=== PATIENT | female | born 2005 | race Two or more races ===

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

== ENCOUNTER 2025-02-17 08:44 | Inpatient (IN) | payer MEDICAID, SELFPAY ==
[2025-02-17] VITALS (168 sets, daily range): BP systolic 101–144; BP diastolic 55–97; PULSE 50–96; RESP 16–97; TEMP 36.7–37.2; O2SAT 90–100; BMI 27.3
[2025-02-17 09:47] LABS: Collection Type, Urine Clean Catch
[2025-02-17 10:10] LABS: Bilirubin,Urine Negative (Negative); Blood,Urine Negative (Negative); Clarity,Urine Clear (Clear/Hazy); Color,Urine Lt-Yellow (Lt Yel-Yel); Glucose, Urine Negative (Negative); Hyphae Yeast Present; Ketones,Urine Negative (Negative); Leukocyte Esterase,Urine Positive (Negative); Nitrite,Urine Negative (Negative); PH,Urine 7.0 (5.0-7.0); Protein,Urine Trace (Neg - Trace); RBC,Urine 2 /hpf (0-3); Specific Gravity,Urine 1.015 (1.001-1.035); Squamous Epithelial Cell,Urine 4 /hpf (0-5); Urobilinogen,Urine Negative mg/dL (0.0-1.0); WBC,Urine 10 /hpf (0-5)
--- NOTE | 2025-02-17 10:47 | PD.LDHP ---
Documentation for date of: 02/17/25 OB Labor/Induct. HPI History of Present Illness : 2 Para: 1 Term pregnancies: 1 pregnancies: 0 Living children: 1 History of Abortions: Spontaneous and Elective: 0 History of Vaginal deliveries: 1 History of sections: No History of : No Date of last menstrual period: 05/22/24 ZANE: 02/26/25 Gestational Age (weeks): 38 Gestational Age (days): 5 Gestational age based on last menstrual period: 38 History of present illness: H and P dictated on STAT line #9 in [facility]. [id number]. History of Present Adequate Care: Yes Past Medical History Surgical History SURGICAL: Negative Section Meds Home Medications and Allergies Home Medications ?Medication ?Instructions ?Recorded ?Confirmed ?Type ferrous sulfate 325 mg (65 mg 325 mg PO DAILY 05/08/23 02/17/25 History iron) tablet vits no.124-ferrous fum 1 tab PO QDAY 06/04/23 02/17/25 History 27 mg iron-folic acid 800 mcg tablet ( Vitamin) Allergies Allergy/AdvReac Type Severity Reaction Status Date / Time No Known Allergies Allergy Verified 02/17/25 10:34 OB Exam Physical Exam Vital signs: Temp Pulse Resp BP Pulse Ox 98.1 F 90 18 119/75 98 02/17/25 08:59 02/17/25 08:59 02/17/25 08:59 02/17/25 08:59 02/17/25 09:34 OB Results Labs Labs: Urine 02/17/25 Range/Units 09:00 Urine Color Lt-Yellow (Lt Yel-Yel) Urine Clarity Clear (Clear/Hazy) Urine pH 7.0 (5.0-7.0) Ur Specific [place] 1.015 (1.001-1.035) Urine Protein Trace (Neg - Trace) Urine Glucose (UA) Negative (Negative)
--- NOTE | 2025-02-17 10:55 | ESHP_ITS ---
RE: KORI CRYSTAL : 2005 DATE OF ADMISSION: 02/17/2025 HISTORY OF PRESENT ILLNESS: This is a 19-year-old 2, para 1, with due date of 02/26 with intrauterine at 38 weeks and 5 days, who presents to labor and delivery complaining of contractions and some vaginal bleeding. There is no bleeding noted on her presentation to labor and delivery. However, she was dilated 3 cm and was having some irregular contractions. She had a category 1 tracing with normal vital signs, so she has decided to ambulate to see if she progresses in labor. Her care was complicated by pyelonephritis where she was hospitalized on 10/04 through 10/06 and subsequently was placed on Macrobid daily to prevent any reoccurring pyelonephritis or bladder infection. She also received RhoGAM at 28 weeks for Rh negative. She has also had iron deficiency anemia and she has been taking ferrous sulfate in addition to having iron infusions in 12/2024. Group B strep urinary tract infection 01/08/2025. ALLERGIES: NO KNOWN DRUG ALLERGIES. MEDICATIONS: 1. multivitamin 1 p.o. daily. 2. Ferrous sulfate 325 mg 1 p.o. b.i.d. 3. Macrobid 100 mg 1 p.o. daily. PAST MEDICAL HISTORY: Iron deficiency anemia, pyelonephritis, left breast cyst, Rh negative, group B strep urinary tract infection 01/08/2025. SOCIAL HISTORY: She uses marijuana. She denies any alcohol or other drug use. FAMILY HISTORY: Denies. OBSTETRICAL HISTORY: In 05/2023, 40-week normal vaginal delivery, 5 pound 6 ounce male, no complications. PAST SURGICAL HISTORY: Denies. REVIEW OF SYSTEMS: She denies any chest pain, palpitations, cough, fever, shortness of breath, or lower extremity pain. PHYSICAL EXAMINATION: VITAL SIGNS: Blood pressure 135/82, heart rate 88, respirations 18, temperature 98.6, weight 166 pounds. HEENT: Oropharynx and sclerae clear. LUNGS: Clear to auscultation bilaterally. HEART: Regular rate and rhythm. ABDOMEN: Gravid consistent with estimated weight 7 pounds. EXTREMITIES: Nontender. SKIN: No gross rashes or lesions. NEUROLOGIC: No focal deficit. UA suggests possible UTI. ASSESSMENT: Intrauterine at 38 weeks and 5 days. Early labor. UTI. PLAN: Admit for anticipated normal vaginal delivery and GBS prophylactic and UTI antibiotic. Informed Consent Obtained: Patient made aware of the risks, complications, alternatives and benefits of OVD and C/S delivery and she agrees. DT: 10:34:29 TT: 10:54:00 Ref: [id number] - TID: [id number] MTDD
[2025-02-17] MEDS: SODIUM CHLORIDE 0.9% 1000 ML 1,000 ML 125 ML IV (11:21)
[2025-02-17] MEDS: cefTRIAXone/D5w 1gm IV premix 1 GM/50 ML BAG IV (11:22)
[2025-02-17 11:52] LABS: Basophils # (Auto) 0.0 Thou/mm3 (0.0-0.2); Basophils % (Auto) 0 % (0-2.5); Eosinophils # (Auto) 0.0 Thou/mm3 (0.0-0.5); Eosinophils % (Auto) 0 % (0-10); Hematocrit 31.2 % (36.0-46.0); Hemoglobin 10.5 g/dL (12.0-16.0); Immature Granulocytes Auto 0.04 Thou/mm3 (0.00-0.00); Lymphocytes # (Auto) 1.2 Thou/mm3 (1.0-5.0); Lymphocytes % (Auto) 13 % (10-50); Mean Corpuscular HGB Conc 33.7 g/dl (31.0-37.0); Mean Corpuscular Hemoglobin 28.6 pg (25.0-35.0); Mean Corpuscular Volume 85 fL (80-100); Monocytes # (Auto) 0.9 Thou/mm3 (0.0-0.8); Monocytes % (Auto) 9 % (0-12); Neutrophils # (Auto) 6.9 Thou/mm3 (1.8-7.7); Neutrophils % (Auto) 77 % (37-80); Nucleated Red Blood Cell # 0.00 Thou/mm3 (0.00-0.00); Nucleated Red Blood Cell % 0 /100 WBC (0); Platelet Count 210 Thou/mm3 (140-440); RDW Standard Deviation 47.4 fL (36.4-46.3); Red Blood Count 3.67 Miln/mm3 (4.00-5.20); White Blood Count 9.0 Thou/mm3 (4.5-11.0)
[2025-02-17 12:37] LABS: Syphilis Nonreactive (Nonreactive)
[2025-02-17] MEDS: RINGERS LACTATED 1000 ML 1,000 ML 100 ML IV ×2 (13:05→14:11)
[2025-02-17] MEDS: Ampicillin Inj 1,000 MG in SODIUM CHLORIDE 0.9% (Popper) 50 ML 50 MG IV ×2 (15:05→19:02)
[2025-02-17 15:08] LABS: Amphetamine/Metham Scrn,Ur OB Negative (Negative); Benzoylecgonine Screen, Ur OB Negative (Negative); Opiate Screen,Urine OB Negative (Negative); THC Screen,Urine OB Negative (Negative)
[2025-02-17] MEDS: MINERAL OIL 30 ML UDC TOP (19:51)
[2025-02-17] MEDS: OXYTOCIN in NS 20 units 20 UNIT/1,000 ML BAG 125 UNIT IV (19:59)
--- NOTE | 2025-02-17 20:17 | PD.LDDS ---
DS: Providers Provider Date of admission: 02/17/25 10:40 Primary care physician: Physician No Primary/Family Admitting Provider: Dean Chanel MD Attending Provider on Admission: Dean Chanel MD Attending Provider on DC: Dean Chanel MD Discharging Provider: Dean Chanel MD DS: Diagnosis Problem List Completed Was Problem List Reviewed/Reconciled?: Yes Summary/Hosp Course Brief History: H and P dictated on STAT line #9 in [facility]. [id number]. Time Spent with Patient Time attestation: Total time spent providing and/or coordinating discharge services: Exam Vital Signs Temp Pulse Resp BP Pulse Ox 98.6 F 65 16 118/78 92 L 02/17/25 18:30 02/17/25 20:05 02/17/25 18:30 02/17/25 20:05 02/17/25 20:15 Discharge Plan Plan Patient Disposition: HOME (Self Care) Patient condition on transfer: Stable Prescriptions/Referrals Prescriptions/Med Rec: New ibuprofen 600 mg tablet 600 mg PO Q6H MDD 4 PRN (Reason: pain) Qty: 30 0RF Continued Vitamin 27 mg iron- 800 mcg Tablet 1 tab PO QDAY Discontinued ferrous sulfate 325 mg (65 mg iron) tablet 325 mg PO DAILY Patient Comments: TAKE 1 TABLET BY MOUTH EVERY DAY Referrals: No Primary/Family,Physician [Primary Care Provider] Patient/Caregiver Discharge Instructions Discharge Activity: activity as tolerated Other Discharge Activity Instructions:: Follow up office 6 weeks Education Materials: After a Vaginal , Breast Care After Print Language: Japanese Stand Alone Forms: Kimberley Award Info., Patient Portal Info Letter Discharge Order Discharge Orders: Discharge (Routine); Ordered 02/18/25 Ordered By: Dean Chanel Planned Discharge Date 02/18/25
[2025-02-17] MEDS: BENZO/LANO/ALOE (Dermoplast) 60 GM CAN 1 SPRAY TOP (21:44)
[2025-02-18 01:00] VITALS: BP 131/86; PULSE 65; RESP 16; TEMP 37.1; O2SAT 96
[2025-02-18] MEDS: IBUPROFEN TAB 400 MG TABLET 800 MG PO ×2 (01:57→20:30)
--- NOTE | 2025-02-18 02:36 | PD.LDDELS ---
Data (Clay) Data Hx Section: No : 2 Term: 1 : 0 Livin Abortions: Spontaneous & Theraputic: 0 Delivery Data (Clay) Labor Data Initiation of labor: Spontaneous Induction/Augmentation Agent: None ROM date: 02/17/25 ROM time: 17:10 Amniotic membrane rupture type: Spontaneous Amniotic fluid description: Clear and Blood Tinged Delivery Data Onset of labor date: 02/17/25 Onset of labor time: 15:40 Complete dilation date: 02/17/25 Complete dilation time: 19:05 Rosie delivery date: 02/17/25 delivery time: 19:57 Placenta delivery date: 02/17/25 Placenta delivery time: 20:07 Stage 1 total time: Labor - Stage 1 Duration 3 hours and 25 minutes Delivered by: Dean Chanel Delivery nurse: joe Page nurse: kadeem gonzalez rn Commercial Green Building Designer at delivery: No Support person(s) at delivery: father of the baby Lux Delivery Method Delivery method: Normal Vaginal Delivery Presentation: Vertex Anesthesia Type Anesthesia Type: Epidural Placenta Placenta delivery description: Spontaneous cord blood collection: Cord Blood Type Umbilical Cord cord description: 3 Vessels Data (Clay) Rosie Data order: 1 's gender: Male Identification band number: [id number] weight (gms): 7 lb 5.815 oz Weight (pounds): 7 lbs and 5.8 ozs 1 minute: 9 5 minutes: 9
[2025-02-18 04:39] VITALS: BP 125/78; PULSE 60; RESP 16; TEMP 36.5; O2SAT 97
[2025-02-18 04:53] LABS: Basophils # (Auto) 0.0 Thou/mm3 (0.0-0.2); Basophils % (Auto) 0 % (0-2.5); Eosinophils # (Auto) 0.0 Thou/mm3 (0.0-0.5); Eosinophils % (Auto) 0 % (0-10); Hematocrit 30.4 % (36.0-46.0); Hemoglobin 10.4 g/dL (12.0-16.0); Immature Granulocytes Auto 0.05 Thou/mm3 (0.00-0.00); Lymphocytes # (Auto) 1.0 Thou/mm3 (1.0-5.0); Lymphocytes % (Auto) 8 % (10-50); Mean Corpuscular HGB Conc 34.2 g/dl (31.0-37.0); Mean Corpuscular Hemoglobin 29.2 pg (25.0-35.0); Mean Corpuscular Volume 85 fL (80-100); Monocytes # (Auto) 0.9 Thou/mm3 (0.0-0.8); Monocytes % (Auto) 7 % (0-12); Neutrophils # (Auto) 11.1 Thou/mm3 (1.8-7.7); Neutrophils % (Auto) 84 % (37-80); Nucleated Red Blood Cell # 0.00 Thou/mm3 (0.00-0.00); Nucleated Red Blood Cell % 0 /100 WBC (0); Platelet Count 191 Thou/mm3 (140-440); RDW Standard Deviation 47.8 fL (36.4-46.3); Red Blood Count 3.56 Miln/mm3 (4.00-5.20); White Blood Count 13.1 Thou/mm3 (4.5-11.0)
--- NOTE | 2025-02-18 06:28 | ESPR_ITS ---
RE: KORI CRYSTAL : 2005 DATE OF SERVICE: 02/18/2025 SUBJECTIVE: day #1. Patient denies any problem or complaints. She is voiding and ambulating and tolerating a regular diet and passing flatus. She denies any excessive vaginal bleeding. She denies any dizziness or lightheadedness. She denies any chest pain, palpitation, shortness of breath or lower extremity pain. OBJECTIVE: VITAL SIGNS: Blood pressure is 131/86, heart rate 88, respirations 16, temperature is 98.8, pulse oximetry is 96% on room air. Lungs: Clear to auscultation bilaterally. Heart: Regular rate and rhythm. Abdomen: Fundus is firm and nontender. Extremities: Nontender. LABORATORY DATA: Hemoglobin pre-delivery is 10.5, post-delivery is 10.4. ASSESSMENT: day #1 status post spontaneous vaginal delivery. PLAN: Discharge home when baby is cleared, discharge instructions given, follow up in the office in 6 weeks. DT: 06:10:49 TT: 06:28:00 Ref: [id number] - TID: [id number]
[2025-02-18 08:00] VITALS: BP 134/85; PULSE 60; RESP 18; TEMP 36.4
[2025-02-18] MEDS: ACETAMINOPHEN 325 MG TABLET 650 MG PO (08:04)
[2025-02-18] MEDS: cefTRIAXone/D5w 1gm IV premix 1 GM/50 ML BAG IV (08:47)
--- NOTE | 2025-02-18 10:31 | PC.NURSE ---
Patient cleared by Joaquín in director social
[2025-02-18 11:27] VITALS: BP 126/80; PULSE 70; RESP 16; TEMP 36.5
--- NOTE | 2025-02-18 15:30 | PC.SS ---
ADMINISTRATIVE AND PROGRAM SPECIALIST conducted bedside contact with the patient to address nursing referral indicating patient was positive for THC during .? Toxicology screening at admission negative.? ADMINISTRATIVE AND PROGRAM SPECIALIST introduced self and role.? Present with patient was Lux SWENSON.? Patient gave consent for FOB to be present during discussion.? ADMINISTRATIVE AND PROGRAM SPECIALIST discussed basis of referral.? Patient confirmed positive THC results due being in presence of individuals engaging in THC use.? Patient stated that she does not engage in use of THC.? Patient will not engage in use of THC once return home.? Infant, Orlando; is the patient?s second child.? Infant delivered naturally.? Patient plans on combo feeding infant.? Patient confirms consistency with OB appointments.? Patient is aligned with SNAP, TANF and WIC.? Patient denies history of alcohol/drug abuse.? Patient denies CWS intervention.? Patient denies episodes of domestic violence.? Patient denies possessing a history of mental health, reports no current possession of depression or anxiety.? Patient has access to appropriate supplies and equipment; to include a car seat.? FOB will provide transportation upon discharge.? Patient describes possessing support system consisting of FOB?s parents and extended family.? ADMINISTRATIVE AND PROGRAM SPECIALIST provided the patient with community resources to include [employer] and Warm Line.? No further intervention required at this time, social media analyst will be available to address any further concerns.? ADMINISTRATIVE AND PROGRAM SPECIALIST updated bedside nurse.?
[2025-02-18 17:15] VITALS: BP 123/82; PULSE 70; RESP 17; TEMP 36.9
[2025-02-18 21:37] VITALS: BP 146/95; PULSE 63; RESP 19; TEMP 36.7
--- NOTE | 2025-02-18 21:52 | PC.NURSE ---
Dr. Chanel was made aware that pt's BP is 146/95, stated that it's okay to dc pt right now.
== END 2025-02-18 22:20 | disposition home or self-care (01) | DRG 560 ==
LOC: S4SX 11:01 → S4NX 22:11
PROVIDERS: Admitting Provider Specialist; Visit Provider Specialist
DX: O23.43 Unspecified infection of urinary tract in pregnancy, third trimester (principal); O99.02 Anemia complicating childbirth; D50.9 Iron deficiency anemia, unspecified; Z3A.38 38 weeks gestation of pregnancy; Z37.0 Single live birth; Z67.91 Unspecified blood type, Rh negative
CPT/HCPCS: 36415; 59025; 59409; 80307; 81001; 85025; 86780; 86850; 86870; 86900; 86901; 94762; J0290; J0696; J2590; J2795; J3010; J7030; J7050; J7120; A9270

== ENCOUNTER 2025-03-22 20:22 | Emergency (ER) | payer MEDICAID, SELFPAY ==
[2025-03-22 20:23] VITALS: BMI 24.2
--- NOTE | 2025-03-22 21:17 | PD.EDSKIN ---
ED Skin Abcess FB-RME/HPI General Chief complaint: Skin/Abscess/Foreign Body Stated complaint: BUTTOCK ABSCESS Time Seen by Provider: 03/22/25 20:29 Arrival date/time: 03/22/25 20:22 19-year-old female patient with no past medical history, came in for evaluation regarding sacral redness and swelling. This been ongoing for the last 5 days, getting worse, with tenderness, severity moderate. Patient had history of similar abscess in the same area several months ago I&D was done in this emergency room. According to the patient he came about again. Patient is not diabetic. No medication was taken prior to ER visit. Related Data Home Medications ?Medication ?Instructions ?Recorded ?Confirmed vits no.[id number]-ferrous fum 1 tab PO QDAY 06/04/23 02/17/25 27 mg iron-folic acid 800 mcg tablet ( Vitamin) Previous Rx's ?Medication ?Instructions ?Recorded ibuprofen 600 mg tablet 600 mg PO Q6H PRN pain #30 tabs 02/18/25 ibuprofen 800 mg tablet 800 mg PO Q8H PRN pain #20 tabs 03/22/25 sulfamethoxazole 800 1 tab PO BID #20 tabs 03/22/25 mg-trimethoprim 160 mg tablet (Bactrim DS) Allergies Allergy/AdvReac Type Severity Reaction Status Date / Time No Known Allergies Allergy Verified 02/17/25 10:34 Review of Systems Review of Systems Narrative Review of Systems: Review of system reviewed and within normal limits except mentioned in HPI ED Exam Narrative Physical exam: VITAL SIGNS: Reviewed. GENERAL APPEARANCE: Alert and interactive, follows commands, no acute distress, HEAD AND FACE: Non-traumatic. ENT: PERRL, pink conjunctivitis, eyelid no trauma, Mucous membrane moist. NECK: Supple, nontender, no nuchal rigidity. CHEST: No tenderness, no crepitus, no paradoxical movement, no retractions. LUNGS: Clear, well ventilated, symmetric, no rales, no wheezing, no ronchi, no stridor, good breath sounds bilaterally. HEART: Regular rate, regular rhythm, no murmur, no gallops. ABDOMEN: Soft, positive bowel sounds, nondistended, no guarding, nontender, no rebound, no masses, RECTAL: +2x2 cm centimeters, redness, swelling, fluctuant, central area with tenderness GENITAL: Deferred. NEUROLOGICAL: Gross motor function intact sensory function intact, Appropriate for age. MUSCULOSKELETAL: low back nontender, full range of motion. EXTREMITIES: Nontender, full range of motion. SKIN: Color pink, dry, no rash, no lacerations, no abrasions, no contusions. LYMPHATICS: Deferred. Course Quality Measures none Orders Category Date Time Status Ibuprofen Tab [Motrin Tab] Med 03/22/25 21:16 Once 800 mg PO X1 ONE Lidocaine 1% Vial 20 ml [Xylocaine 1% 20 ML] Med 03/22/25 21:16 Once 10 ml INFL X1 ONE Trimethoprim/Sulfa 160/800 Ds [Bactrim Ds] Med 03/22/25 21:16 Once 1 tab PO X1 ONE PROCEDURES: Abscess I/D Site: other (Sacral) Sedation/analgesia: none Local Anesthetic: lidocaine 1% Amount of anesthesia used (mL): 5 Technique: incised with #11 blade Amount of fluid expressed (mL): 5 Irrigation: Yes Packing used?: plain Skin / Abscess / Foreign Body MDM Narrative MDM Narrative:: 19-year-old female patient with no past medical history, came in for evaluation regarding sacral redness and swelling. This been ongoing for the last 5 days, getting worse, with tenderness, severity moderate. Patient had history of similar abscess in the same area several months ago I&D was done in this emergency room. According to the patient he came about again. Patient is not diabetic. No medication was taken prior to ER visit. Incision and drainage was done by me see procedure notes. Patient received Bactrim and Motrin. Patient tolerated the procedure well. Patient data External records reviewed:: None Clinical information provided by:: patient Social determinants that could affect healthcare access:: none Patient has the following chronic illnesses:: None How is presenting disease/condition affected by chronic disease/condition?: no chronic disease Evaluation data The following diagnostics were reviewed and interpreted by me:: other (specify) (None) Lab and/or radiology exams considered but not ordered:: None Interpretation Summary: None Medications / Prescriptions Medications or Prescriptions considered but not ordered:: None Medication administrations:: None Consultations Consultation(s) initiated? (list below): No Diagnosis Skin/Abscess Differential Diagnosis: abscess of skin or subcutaneous tissue, cellulitis and other (Pilonidal cyst abscess) Most likely diagnosis given after review of the tests above:: Pilonidal cyst abscess Admission Indicated Admission indicated?: not indicated Admission Request Was there a request for admission?: No Disposition Plan Disposition Plan: Discharge Discharge Attestation Discharge Attestation: The patient and all family members were given an opportunity to ask questions and understood the discharge instructions. Discharge instructions specifically effects, indications for sooner follow up or return to the emergency department, and the expected course of current diagnosis. Patient condition: Stable Discharge Plan Plan Patient Disposition: HOME (Self Care) Discharge Disposition comment: Stable Prescriptions/Referrals Prescriptions/Med Rec: New sulfamethoxazole-trimethoprim [Bactrim DS] 800-160 mg tablet 1 tab PO BID Qty: 20 0RF ibuprofen 800 mg tablet 800 mg PO Q8H PRN (Reason: pain) Qty: 20 0RF No Action Vitamin 27 mg iron- 800 mcg Tablet 1 tab PO QDAY ibuprofen 600 mg tablet 600 mg PO Q6H MDD 4 PRN (Reason: pain) Qty: 30 0RF Referrals: Francisco Sharma MD [Primary Care Provider, Family Practice] - In 1 week Problem List Clinical Impression: Cyst, pilonidal, with abscess Patient/Caregiver Discharge Instructions Discharge Activity: activity as tolerated Education Materials: ED Cyst Pilonidal Infected IandD Additional Instructions: Thank you for the opportunity for serving you today. You are stable for discharged . You are advised to: Follow-up with your PCP in 1 to 2 days Return to ED for worsening of symptoms Increase oral fluids For repacking of wound daily as instructed for the next 7 days Print Language: Swazi Stand Alone Forms: Kimberley Award Info., Patient Portal Info Letter SP/TAMMY Supervising Physician PHI Supervising Physician: MD Devyn
[2025-03-22 21:21] VITALS: BP 104/64; PULSE 91; RESP 19; TEMP 36.9; O2SAT 99
[2025-03-22 21:23] VITALS: TEMP 36.9
[2025-03-22] MEDS: IBUPROFEN TAB 400 MG TABLET 800 MG PO (21:23)
[2025-03-22] MEDS: TRIMETHOPRIM/SULFA 160/800 DS TABLET 1 TAB PO (21:24)
[2025-03-22 21:32] VITALS: PULSE 87; RESP 19; TEMP 36.9; O2SAT 98
== END 2025-03-22 21:32 | disposition home or self-care (01) ==
PROVIDERS: Emergency Provider Emergency Medicine; PCP Family Medicine
DX: L05.01 Pilonidal cyst with abscess (principal)
CPT/HCPCS: 10080; 99281; A9270